=== PATIENT | female | born 1995 | race African-American/Black ===

== ENCOUNTER 2023-08-28 08:46 | Day surgery (SDC) | payer MEDICAID ==
[~2023-08-28] VITALS: Ht 157.5 cm; Wt 157.7 kg
[~2023-08-28 08:46] MED LIST: BENZ100C68 PO; CARI1.5C PO; CEFU500T41 PO; HYDR-3831 PO; OXYC5CAP19 PO; PHEN-948 PO; SEMA2PEN INJ; SODIUM CHLORIDE 0.9% 1,000 ML ONE; TAMS0.4C94 PO
[2023-08-28] MEDS ORDERED: LIDOCAINE/PF 2% 5 ML VIAL IM ONE (08:47)
[2023-08-28] MEDS ORDERED: PROPOFOL 1% 20 ML VIAL IVP ONE (08:47)
[2023-08-28] MEDS ORDERED: SODIUM CHLORIDE 0.9% 1,000 ML IV ONE (10:15)
== END 2023-08-28 12:20 | disposition home or self-care (01) ==
LOC: SURGERY 08:46
PROVIDERS: ATTEND Internal Medicine Gastroenterology
DX: K57.30 Diverticulosis of large intestine without perforation or abscess without bleeding (principal); K64.9 Unspecified hemorrhoids; K29.50 Unspecified chronic gastritis without bleeding; F41.8 Other specified anxiety disorders; I10 Essential (primary) hypertension; E66.01 Morbid (severe) obesity due to excess calories; B96.81 Helicobacter pylori [H. pylori] as the cause of diseases classified elsewhere; Z79.899 Other long term (current) drug therapy; Z68.44 Body mass index [BMI] 60.0-69.9, adult; D64.9 Anemia, unspecified
CPT/HCPCS: 45380; 43239; 84703; 36415; 88305; 88312; 88313; C1769; J2704; J3490; J7030